=== PATIENT | female | born 1960 | race Caucasian/White ===

== ENCOUNTER 2019-09-15 02:34 | Emergency (ER) | payer MEDICAID ==
[~2019-09-15] VITALS: Ht 152.4 cm; Wt 59.9 kg
[~2019-09-15 02:34] MED LIST: FLUO20CA19; HAL5T; RISP4TAB50 PO; TRAZ150T79
[2019-09-15 03:05] VITALS: BP 113/71
[2019-09-15 03:59] LABS: Basophils # (auto) 0.1 uL; Basophils % (auto) 0.7 % (0.0-2.0); Eosinophils # (auto) 0.2 uL; Eosinophils % (auto) 2.2 % (0.0-7.0); Hemoglobin 13.9 g/dL (12.2-16.2); Lymphocytes # (auto) 1.9 uL; Lymphocytes % (auto) 23.8 % (10.0-50.0); Mean Corpuscular Hemoglobin 29.7 pg (28.0-32.0); Mean Corpuscular Hgb Conc. 33.1 g/dL (32.0-36.0); Mean Corpuscular Volume 89.7 fL (80.0-100.0); Monocytes # (auto) 0.5 uL; Monocytes % (auto) 6.8 % (0.0-12.0); Neutrophils # (auto) 5.4 uL; Neutrophils % (auto) 66.5 % (37.0-80.0); Platelet Count (auto) 404 10^3/uL (140-450); Red Blood Cells 4.68 10^6/uL (4.0-5.20); Red Cell Distribution Width 12.8 % (11.8-14.3); White Blood Cell 8.1 10^3/uL (4.4-10.8)
[2019-09-15 04:30] LABS: Albumin 3.3 g/dL (3.4-5.0); Anion Gap 5 (5-15); Blood Alcohol < 3.0 mg/dL (0-5); Blood Urea Nitrogen 6 mg/dL (7-18); Calcium 7.9 mg/dL (8.5-10.1); Carbon Dioxide 30 mmol/L (21-32); Chloride 110 mmol/L (98-107); Glucose 72 mg/dL (74-106); Potassium 3.6 mmol/L (3.5-5.1); Sodium 145 mmol/L (136-145)
[2019-09-15 04:33] LABS: Alanine Aminotransferase 21 U/L (13-56); Alkaline Phosphatase 74 U/L (45-117); Aspartate Aminotransferase 20 U/L (15-37); BUN/Creatinine Ratio 7.1; Bilirubin, Total 0.2 mg/dL (0.2-1.0); GFR African American 89 mL/min; GFR Non-African American 74 mL/min; Total Protein 6.3 g/dL (6.4-8.2)
[2019-09-15 05:14] LABS: Acetaminophen < 2.0 ug/mL (10-30); Salicylate < 1.7 mg/dL (2.8-20.0)
== END 2019-09-15 09:35 | disposition left against medical advice (07) ==
LOC: EDBD 02:34 → ER 02:39
DX: F32.9 Major depressive disorder, single episode, unspecified (principal); Z53.21 Procedure and treatment not carried out due to patient leaving prior to being seen by health care provider
CPT/HCPCS: 36415; 80053; 80320; 80329; 85025

== ENCOUNTER 2020-01-16 21:03 | Emergency (ER) | payer MEDICAID ==
[~2020-01-16] VITALS: Ht 162.6 cm; Wt 63.5 kg
[2020-01-16] MEDS ORDERED: SODIUM CHLORIDE 0.9% 1,000 ML IVB ONE (21:14)
[2020-01-16] MEDS ORDERED: PANTOPRAZOLE 40 MG/10 ML VIAL INJ IV STA (21:14)
[2020-01-16] MEDS ORDERED: PROCHLORPERAZINE EDISYLATE 5 MG/ML 2ML VIAL IV ONE (21:15)
[2020-01-16] MEDS ORDERED: MORPHINE SULFATE 4 MG/ML SYR/VIAL IV ONE (21:15)
[2020-01-16] MEDS ORDERED: traMADol HCL 50 MG TAB PO ONE (23:30)
[2020-01-16 23:43] LABS: Basophils # (auto) 0.1 10 ^3/uL (0-0.2); Basophils % (auto) 0.3 % (0.0-2.0); Eosinophils # (auto) 0 10 ^3/uL (0-0.8); Hematocrit 39.4 % (36.0-46.0); Lymphocytes # (auto) 1.1 10 ^3/uL (0.4-5.4); Mean Corpuscular Hemoglobin 29.9 pg (28.0-32.0); Mean Corpuscular Hgb Conc. 33.1 g/dL (32.0-36.0); Mean Corpuscular Volume 90.5 fL (80.0-100.0); Monocytes % (auto) 6.2 % (0.0-12.0); Neutrophils # (auto) 13.4 10 ^3/uL (1.6-8.6); Neutrophils % (auto) 86.5 % (37.0-80.0); Platelet Count (auto) 311 10^3/uL (140-450); Red Blood Cells 4.35 10^6/uL (4.0-5.20); Red Cell Distribution Width 13.1 % (11.8-14.3); White Blood Cell 15.5 10^3/uL (4.4-10.8)
[2020-01-16 23:58] LABS: Albumin 3.4 g/dL (3.4-5.0); Calcium 8.4 mg/dL (8.5-10.1); Potassium 3.8 mmol/L (3.5-5.1)
[2020-01-17] LABS: BUN/Creatinine Ratio 16.3
[2020-01-17 00:01] LABS: Bilirubin, Total 0.5 mg/dL (0.2-1.0); Total Protein 6.5 g/dL (6.4-8.2)
[2020-01-17 03:23] VITALS: BP 147/82
== END 2020-01-17 03:23 | disposition home or self-care (01) ==
LOC: ER 21:03 → EDBD 21:03 → ER 01-17 03:23
DX: K29.70 Gastritis, unspecified, without bleeding (principal); K59.00 Constipation, unspecified; K40.90 Unilateral inguinal hernia, without obstruction or gangrene, not specified as recurrent; F12.188 Cannabis abuse with other cannabis-induced disorder; Z71.51 Drug abuse counseling and surveillance of drug abuser; J45.909 Unspecified asthma, uncomplicated
CPT/HCPCS: 36415; 74176; 76705; 80053; 83690; 85025; 96361; 96374; 96375; 99285; C9113; J0780

== ENCOUNTER 2020-11-25 03:52 | Inpatient (IN) | payer MEDICAID ==
[~2020-11-25] VITALS: Ht 162.6 cm; Wt 67.4 kg
[~2020-11-25 03:52] MED LIST changes: +RISP4TAB25 PO; -RISP4TAB50 PO; -TRAZ150T79; +TRAZ1TAB12
[2020-11-25] MEDS ORDERED: ONDANSETRON HCL 4 MG/2 ML VIAL IV ONE ×2 (05:00→13:00)
[2020-11-25] MEDS ORDERED: MORPHINE SULF INJ 2 MG/ML SYRINGE 1ML IV ONE (05:00)
[2020-11-25 05:35] LABS: Basophils # (auto) 0.1 10 ^3/uL (0-0.2); Basophils % (auto) 1.1 % (0.0-2.0); Eosinophils # (auto) 0.3 10 ^3/uL (0-0.8); Eosinophils % (auto) 2.6 % (0.0-7.0); Hematocrit 41.1 % (36.0-46.0); Hemoglobin 13.7 g/dL (12.2-16.2); Lymphocytes # (auto) 1.2 10 ^3/uL (0.4-5.4); Lymphocytes % (auto) 9.3 % (10.0-50.0); Mean Corpuscular Hemoglobin 29.9 pg (28.0-32.0); Mean Corpuscular Hgb Conc. 33.2 g/dL (32.0-36.0); Mean Corpuscular Volume 90.1 fL (80.0-100.0); Monocytes # (auto) 0.7 10 ^3/uL (0-1.3); Monocytes % (auto) 5.7 % (0.0-12.0); Neutrophils # (auto) 10.5 10 ^3/uL (1.6-8.6); Neutrophils % (auto) 81.3 % (37.0-80.0); Nucleated Red Blood Cells % 0.1 %; Platelet Count (auto) 528 10^3/uL (140-450); Red Blood Cells 4.57 10^6/uL (4.0-5.20); Red Cell Distribution Width 13.1 % (11.8-14.3)
[2020-11-25 05:57] LABS: Lactic Acid w/Reflex 2.1 mmol/L (0.4-2.0)
[2020-11-25 05:58] LABS: Calcium 8.4 mg/dL (8.5-10.1); Chloride 108 mmol/L (98-107); Potassium 3.7 mmol/L (3.5-5.1); Sodium 142 mmol/L (136-145)
[2020-11-25 06:04] LABS: INR 0.97 (0.9-1.15); Partial Thromboplastin Time 27.1 sec (23.0-31.2)
[2020-11-25 06:07] LABS: Alanine Aminotransferase 13 U/L (13-56); Albumin 3.8 g/dL (3.4-5.0); Alkaline Phosphatase 88 U/L (45-117); Anion Gap 9 (5-15); Aspartate Aminotransferase 14 U/L (15-37); BUN/Creatinine Ratio 5.2; Bilirubin, Total 0.4 mg/dL (0.2-1.0); Blood Urea Nitrogen 5 mg/dL (7-18); Carbon Dioxide 25 mmol/L (21-32); GFR African American 76 mL/min; GFR Non-African American 63 mL/min; Glucose 100 mg/dL (74-106); Magnesium 2.5 mg/dL (1.6-2.6); Total Protein 6.6 g/dL (6.4-8.2)
[2020-11-25] MEDS ORDERED: IOHEXOL 350 MG/ML 100ML IJ ONE (10:33)
[2020-11-25] MEDS ORDERED: cefTRIAXone 1GM/50ML D5W 50 ML IV ONE (10:45)
[2020-11-25] MEDS ORDERED: MORPHINE SULFATE 4 MG/ML SYR/VIAL IV ONE (13:00)
[2020-11-25] MEDS ORDERED: NITROGLYCERIN 0.4 MG SL TAB SL PRN (14:45)
[2020-11-25] MEDS ORDERED: PROMETHAZINE HCL 25 MG/ML 1ML IV PRN (14:45)
[2020-11-25] MEDS ORDERED: CLINDAMYCIN 300MG IV 50 ML IV ONE (14:45)
[2020-11-25] MEDS ORDERED: MORPHINE SULF INJ 2 MG/ML SYRINGE 1ML IV PRN (14:45)
[2020-11-25] MEDS ORDERED: ALBUTEROL SULF 2.5 MG/0.5ML(0.5%) NEB SOLN NEB PRN (14:45)
[2020-11-25] MEDS ORDERED: LACTULOSE 20Gm/30ML SOLN PO PRN (14:45)
[2020-11-25] MEDS ORDERED: levoFLOXacin 500MG 100 ML IV ONE (14:45)
[2020-11-25] MEDS ORDERED: oxyCODONE HCL 5MG TAB PO PRN (15:00)
[2020-11-25 15:01] VITALS: BP 115/58
[2020-11-25] MEDS: SODIUM CHLORIDE 0.9% 1,000 ML IV SCH (15:02)
[2020-11-25 16:08] LABS: CRP High Sensitivity 0.53 mg/dL (< 0.3)
[2020-11-25] MEDS: MORPHINE SULF INJ 2 MG/ML SYRINGE 1ML IV PRN ×2 (18:01→22:05)
[2020-11-25 18:02] VITALS: BP 122/81
[2020-11-25] MEDS: IPRATROPIUM BROM 0.5 MG/2.5ML INH SOL NEB SCH ×2 (18:07→23:57)
[2020-11-25] MEDS: ALBUTEROL SULF 2.5 MG/0.5ML(0.5%) NEB SOLN NEB SCH ×2 (18:07→23:57)
[2020-11-25] MEDS: CLINDAMYCIN 300MG IV 50 ML IV SCH (21:27)
[2020-11-25] MEDS: FAMOTIDINE 20 MG TAB PO SCH (21:27)
[2020-11-25] MEDS: CARVEDILOL 3.125 MG TAB PO SCH (21:28)
[2020-11-25] MEDS: ATORVASTATIN 20 MG TAB PO SCH (21:28)
[2020-11-25 22:00] VITALS: BP 105/54
[2020-11-26] MEDS: SODIUM CHLORIDE 0.9% 1,000 ML IV SCH ×4 (00:45→23:36)
[2020-11-26 01:39] LABS: Urine Bacteria FEW /hpf (None Seen); Urine Blood Negative /uL (Negative)
[2020-11-26 01:40] LABS: Urine WBC 5 /hpf (0 - 5)
[2020-11-26 01:48] LABS: Alcohol, Urine < 3.0 mg/dL (0-10); Amphetamine Screen, Urine POSITIVE (NEGATIVE); Barbiturate Scree,Urine NEGATIVE (NEGATIVE); Benzodiazephine Screen, Urine POSITIVE (NEGATIVE); Cannabinoid Screen, Urine POSITIVE (NEGATIVE); Cocaine Screen, Urine NEGATIVE (NEGATIVE); Opiate Scree,Urine NEGATIVE (NEGATIVE); Phencyclidine Screen, Urine NEGATIVE (NEGATIVE)
[2020-11-26] MEDS: MORPHINE SULF INJ 2 MG/ML SYRINGE 1ML IV PRN ×4 (04:07→21:37)
[2020-11-26 05:00] VITALS: BP 100/54
[2020-11-26 05:25] LABS: Basophils # (auto) 0.1 10 ^3/uL (0-0.2); Eosinophils # (auto) 0.3 10 ^3/uL (0-0.8); Eosinophils % (auto) 3.7 % (0.0-7.0); Hematocrit 34.2 % (36.0-46.0); Hemoglobin 11.6 g/dL (12.2-16.2); Lymphocytes # (auto) 1.4 10 ^3/uL (0.4-5.4); Lymphocytes % (auto) 18.4 % (10.0-50.0); Mean Corpuscular Hemoglobin 30.9 pg (28.0-32.0); Mean Corpuscular Volume 90.9 fL (80.0-100.0); Monocytes # (auto) 0.7 10 ^3/uL (0-1.3); Monocytes % (auto) 9.4 % (0.0-12.0); Neutrophils # (auto) 5.1 10 ^3/uL (1.6-8.6); Neutrophils % (auto) 67.5 % (37.0-80.0); Platelet Count (auto) 388 10^3/uL (140-450); Red Blood Cells 3.77 10^6/uL (4.0-5.20); Red Cell Distribution Width 13.1 % (11.8-14.3); White Blood Cell 7.6 10^3/uL (4.4-10.8)
[2020-11-26] MEDS: CLINDAMYCIN 300MG IV 50 ML IV SCH ×3 (05:37→21:44)
[2020-11-26] MEDS: ALBUTEROL SULF 2.5 MG/0.5ML(0.5%) NEB SOLN NEB SCH ×3 (05:39→19:21)
[2020-11-26] MEDS: IPRATROPIUM BROM 0.5 MG/2.5ML INH SOL NEB SCH ×3 (05:39→19:21)
[2020-11-26 05:45] LABS: Cholesterol 159 mg/dL (< 200); HDL Cholesterol 49 mg/dL (40-59); LDL Cholesterol 99 mg/dL (< 100); Triglycerides 85 mg/dL (< 150)
[2020-11-26] MEDS: LEVOTHYROXINE SODIUM 25 MCG TAB PO SCH (06:14)
[2020-11-26 08:00] VITALS: BP 95/58
[2020-11-26 08:52] VITALS: BP 95/58
[2020-11-26] MEDS: CARVEDILOL 3.125 MG TAB PO SCH ×2 (10:00→21:37)
[2020-11-26] MEDS: ASPirin 81 mg TAB PO SCH (11:06)
[2020-11-26] MEDS: levoFLOXacin 500MG 100 ML IV SCH (11:06)
[2020-11-26] MEDS: ENOXAPARIN SOD 40 MG/0.4 ML SYRINGE SC SCH (11:08)
[2020-11-26] MEDS: FAMOTIDINE 20 MG TAB PO SCH ×2 (11:08→21:37)
[2020-11-26 12:42] VITALS: BP 94/65
[2020-11-26 16:41] VITALS: BP 95/58
[2020-11-26] MEDS: LORazepam 0.5 MG TAB PO PRN (19:31)
[2020-11-26] MEDS: ATORVASTATIN 20 MG TAB PO SCH (21:38)
[2020-11-26 22:00] VITALS: BP 146/86
[2020-11-27] MEDS: ALBUTEROL SULF 2.5 MG/0.5ML(0.5%) NEB SOLN NEB SCH ×5 (01:19→23:46)
[2020-11-27] MEDS: LORazepam 0.5 MG TAB PO PRN ×4 (03:22→23:39)
[2020-11-27 05:00] VITALS: BP 133/80
[2020-11-27] MEDS: CLINDAMYCIN 300MG IV 50 ML IV SCH ×3 (05:42→22:18)
[2020-11-27] MEDS: MORPHINE SULF INJ 2 MG/ML SYRINGE 1ML IV PRN ×4 (05:42→20:55)
[2020-11-27] MEDS: IPRATROPIUM BROM 0.5 MG/2.5ML INH SOL NEB SCH ×5 (06:08→23:46)
[2020-11-27] MEDS: LEVOTHYROXINE SODIUM 25 MCG TAB PO SCH (06:18)
[2020-11-27 08:00] VITALS: BP 122/63
[2020-11-27 08:51] VITALS: BP 122/63
[2020-11-27] MEDS: levoFLOXacin 500MG 100 ML IV SCH (09:30)
[2020-11-27] MEDS: ASPirin 81 mg TAB PO SCH (09:30)
[2020-11-27] MEDS: ENOXAPARIN SOD 40 MG/0.4 ML SYRINGE SC SCH (09:31)
[2020-11-27] MEDS: FAMOTIDINE 20 MG TAB PO SCH ×2 (09:31→21:56)
[2020-11-27] MEDS: CARVEDILOL 3.125 MG TAB PO SCH ×2 (09:31→21:55)
[2020-11-27 10:32] LABS: Basophils # (auto) 0 10 ^3/uL (0-0.2); Eosinophils # (auto) 0.2 10 ^3/uL (0-0.8); Hematocrit 36.2 % (36.0-46.0); Lymphocytes # (auto) 1.2 10 ^3/uL (0.4-5.4); Monocytes # (auto) 0.5 10 ^3/uL (0-1.3); Red Blood Cells 4.06 10^6/uL (4.0-5.20); White Blood Cell 6.3 10^3/uL (4.4-10.8)
[2020-11-27 10:35] LABS: Basophils % (auto) 0.5 % (0.0-2.0); Hemoglobin 12.2 g/dL (12.2-16.2); Lymphocytes % (auto) 18.8 % (10.0-50.0); Mean Corpuscular Hemoglobin 30.1 pg (28.0-32.0); Mean Corpuscular Hgb Conc. 33.7 g/dL (32.0-36.0); Mean Corpuscular Volume 89.3 fL (80.0-100.0); Monocytes % (auto) 8.7 % (0.0-12.0); Neutrophils # (auto) 4.4 10 ^3/uL (1.6-8.6); Nucleated Red Blood Cells % 0.1 %; Platelet Count (auto) 449 10^3/uL (140-450); Red Cell Distribution Width 12.5 % (11.8-14.3)
[2020-11-27 10:41] LABS: Albumin 2.8 g/dL (3.4-5.0); Calcium 8.4 mg/dL (8.5-10.1)
[2020-11-27 10:45] LABS: Bilirubin, Total 0.5 mg/dL (0.2-1.0); Total Protein 5.9 g/dL (6.4-8.2)
[2020-11-27 12:24] VITALS: BP 115/61
[2020-11-27 16:40] VITALS: BP 105/63
[2020-11-27] MEDS: SODIUM CHLORIDE 0.9% 1,000 ML IV SCH (17:50)
[2020-11-27] MEDS: Ensure HIGH Protein Chocolate 8oz Bottle PO SCH (18:52)
[2020-11-27 21:13] VITALS: BP 107/57
[2020-11-27] MEDS: ATORVASTATIN 20 MG TAB PO SCH (21:50)
[2020-11-27] MEDS: traZODone HCL 50 MG TAB PO SCH (21:51)
[2020-11-27] MEDS: traMADol HCL 50 MG TAB PO PRN (22:05)
[2020-11-28] MEDS: MORPHINE SULF INJ 2 MG/ML SYRINGE 1ML IV PRN ×5 (01:23→21:03)
[2020-11-28] MEDS: SODIUM CHLORIDE 0.9% 1,000 ML IV SCH ×3 (02:45→22:50)
[2020-11-28 05:30] VITALS: BP 120/49
[2020-11-28 05:42] LABS: Basophils # (auto) 0.1 10 ^3/uL (0-0.2); Basophils % (auto) 1.2 % (0.0-2.0); Eosinophils # (auto) 0.2 10 ^3/uL (0-0.8); Lymphocytes # (auto) 1.5 10 ^3/uL (0.4-5.4)
[2020-11-28] MEDS: LEVOTHYROXINE SODIUM 25 MCG TAB PO SCH (05:43)
[2020-11-28] MEDS: CLINDAMYCIN 300MG IV 50 ML IV SCH ×3 (05:43→21:40)
[2020-11-28 05:46] LABS: Eosinophils % (auto) 3.3 % (0.0-7.0); Hematocrit 35.4 % (36.0-46.0); Hemoglobin 12.3 g/dL (12.2-16.2); Lymphocytes % (auto) 24.9 % (10.0-50.0); Mean Corpuscular Hemoglobin 31.1 pg (28.0-32.0); Mean Corpuscular Hgb Conc. 34.6 g/dL (32.0-36.0); Mean Corpuscular Volume 89.7 fL (80.0-100.0); Monocytes # (auto) 0.7 10 ^3/uL (0-1.3); Neutrophils # (auto) 3.6 10 ^3/uL (1.6-8.6); Neutrophils % (auto) 59.6 % (37.0-80.0); Platelet Count (auto) 460 10^3/uL (140-450); Red Blood Cells 3.94 10^6/uL (4.0-5.20); Red Cell Distribution Width 12.5 % (11.8-14.3)
[2020-11-28 06:08] LABS: Potassium 3.6 mmol/L (3.5-5.1)
[2020-11-28 06:21] LABS: BUN/Creatinine Ratio 8.1; Bilirubin, Total 0.6 mg/dL (0.2-1.0); Calcium 8.4 mg/dL (8.5-10.1); Total Protein 5.9 g/dL (6.4-8.2)
[2020-11-28] MEDS: IPRATROPIUM BROM 0.5 MG/2.5ML INH SOL NEB SCH ×3 (06:26→20:15)
[2020-11-28] MEDS: ALBUTEROL SULF 2.5 MG/0.5ML(0.5%) NEB SOLN NEB SCH ×3 (06:27→20:15)
[2020-11-28 08:00] VITALS: BP 127/82
[2020-11-28 09:53] VITALS: BP 124/78
[2020-11-28] MEDS: ASPirin 81 mg TAB PO SCH (09:55)
[2020-11-28] MEDS: FAMOTIDINE 20 MG TAB PO SCH (09:55)
[2020-11-28] MEDS: CARVEDILOL 3.125 MG TAB PO SCH ×2 (09:56→21:42)
[2020-11-28] MEDS: ENOXAPARIN SOD 40 MG/0.4 ML SYRINGE SC SCH (09:56)
[2020-11-28] MEDS: levoFLOXacin 500MG 100 ML IV SCH (09:57)
[2020-11-28] MEDS: Ensure HIGH Protein Chocolate 8oz Bottle PO SCH ×3 (09:58→18:46)
[2020-11-28 12:00] VITALS: BP 125/75
[2020-11-28] MEDS: PANTOPRAZOLE 40 MG/10 ML VIAL INJ IV SCH ×2 (15:11→21:40)
[2020-11-28] MEDS: SUCRALFATE 1 GM/10 ML ORAL SUSP PO SCH ×3 (15:11→21:40)
[2020-11-28 16:00] VITALS: BP 138/82
[2020-11-28] MEDS: traMADol HCL 50 MG TAB PO PRN (16:59)
[2020-11-28] MEDS: LORazepam 0.5 MG TAB PO PRN (18:51)
[2020-11-28] MEDS: traZODone HCL 50 MG TAB PO SCH ×2 (21:42→22:36)
[2020-11-28] MEDS: ATORVASTATIN 20 MG TAB PO SCH (21:43)
[2020-11-28 22:00] VITALS: BP 141/89
[2020-11-29] VITALS (7 sets, daily range): BP systolic 114–158; BP diastolic 63–99
[2020-11-29] MEDS: CLINDAMYCIN 300MG IV 50 ML IV SCH ×3 (05:48→21:21)
[2020-11-29 05:54] LABS: Basophils # (auto) 0 10 ^3/uL (0-0.2); Basophils % (auto) 0.8 % (0.0-2.0); Eosinophils # (auto) 0.2 10 ^3/uL (0-0.8); Eosinophils % (auto) 3.6 % (0.0-7.0); Hematocrit 35.3 % (36.0-46.0); Hemoglobin 12.1 g/dL (12.2-16.2); Lymphocytes # (auto) 1.1 10 ^3/uL (0.4-5.4); Lymphocytes % (auto) 25.6 % (10.0-50.0); Mean Corpuscular Hemoglobin 30.6 pg (28.0-32.0); Mean Corpuscular Hgb Conc. 34.3 g/dL (32.0-36.0); Mean Corpuscular Volume 89.3 fL (80.0-100.0); Monocytes # (auto) 0.5 10 ^3/uL (0-1.3); Monocytes % (auto) 11.1 % (0.0-12.0); Neutrophils # (auto) 2.6 10 ^3/uL (1.6-8.6); Neutrophils % (auto) 58.9 % (37.0-80.0); Nucleated Red Blood Cells % 0.2 %; Platelet Count (auto) 463 10^3/uL (140-450); Red Blood Cells 3.95 10^6/uL (4.0-5.20); Red Cell Distribution Width 12.8 % (11.8-14.3); White Blood Cell 4.5 10^3/uL (4.4-10.8)
[2020-11-29 06:33] LABS: BUN/Creatinine Ratio 12.2; Bilirubin, Total 0.3 mg/dL (0.2-1.0); Calcium 8.4 mg/dL (8.5-10.1); Potassium 3.7 mmol/L (3.5-5.1); Total Protein 5.9 g/dL (6.4-8.2)
[2020-11-29] MEDS: LEVOTHYROXINE SODIUM 25 MCG TAB PO SCH (06:35)
[2020-11-29] MEDS: SUCRALFATE 1 GM/10 ML ORAL SUSP PO SCH ×4 (06:35→21:21)
[2020-11-29] MEDS: ALBUTEROL SULF 2.5 MG/0.5ML(0.5%) NEB SOLN NEB SCH ×4 (06:41→19:12)
[2020-11-29] MEDS: IPRATROPIUM BROM 0.5 MG/2.5ML INH SOL NEB SCH ×4 (06:41→19:12)
[2020-11-29] MEDS: SODIUM CHLORIDE 0.9% 1,000 ML IV SCH ×2 (08:45→18:42)
[2020-11-29] MEDS: ENOXAPARIN SOD 40 MG/0.4 ML SYRINGE SC SCH (10:39)
[2020-11-29] MEDS: ASPirin 81 mg TAB PO SCH (10:40)
[2020-11-29] MEDS: CARVEDILOL 3.125 MG TAB PO SCH ×2 (10:40→21:39)
[2020-11-29] MEDS: levoFLOXacin 500MG 100 ML IV SCH (10:41)
[2020-11-29] MEDS: PANTOPRAZOLE 40 MG/10 ML VIAL INJ IV SCH ×2 (10:41→21:21)
[2020-11-29] MEDS: MORPHINE SULF INJ 2 MG/ML SYRINGE 1ML IV PRN ×3 (10:41→21:22)
[2020-11-29] MEDS: Ensure HIGH Protein Chocolate 8oz Bottle PO SCH ×3 (10:42→18:21)
[2020-11-29] MEDS: LORazepam 0.5 MG TAB PO PRN (14:21)
[2020-11-29] MEDS ORDERED: DIVA500T2 PO (17:41)
[2020-11-29] MEDS ORDERED: ALPR0.5T PO (17:41)
[2020-11-29] MEDS ORDERED: TRAZ50TA2 PO (17:41)
[2020-11-29] MEDS: ATORVASTATIN 20 MG TAB PO SCH (21:21)
[2020-11-29] MEDS: traZODone HCL 50 MG TAB PO SCH (22:47)
[2020-11-30] MEDS: IPRATROPIUM BROM 0.5 MG/2.5ML INH SOL NEB SCH ×4 (00:22→18:31)
[2020-11-30] MEDS: ALBUTEROL SULF 2.5 MG/0.5ML(0.5%) NEB SOLN NEB SCH ×4 (00:22→18:31)
[2020-11-30] MEDS: SODIUM CHLORIDE 0.9% 1,000 ML IV SCH ×2 (04:45→13:07)
[2020-11-30 05:22] VITALS: BP 142/56
[2020-11-30] MEDS: CLINDAMYCIN 300MG IV 50 ML IV SCH (06:05)
[2020-11-30] MEDS: SUCRALFATE 1 GM/10 ML ORAL SUSP PO SCH ×4 (06:07→21:51)
[2020-11-30] MEDS: LEVOTHYROXINE SODIUM 25 MCG TAB PO SCH (06:07)
[2020-11-30] MEDS: MORPHINE SULF INJ 2 MG/ML SYRINGE 1ML IV PRN ×4 (06:07→20:03)
[2020-11-30 07:13] LABS: Basophils # (auto) 0.1 10 ^3/uL (0-0.2); Basophils % (auto) 1.2 % (0.0-2.0); Eosinophils # (auto) 0.2 10 ^3/uL (0-0.8); Eosinophils % (auto) 2.9 % (0.0-7.0); Hematocrit 34.8 % (36.0-46.0); Hemoglobin 11.9 g/dL (12.2-16.2); Lymphocytes # (auto) 1.1 10 ^3/uL (0.4-5.4); Lymphocytes % (auto) 22.1 % (10.0-50.0); Mean Corpuscular Hemoglobin 30.6 pg (28.0-32.0); Mean Corpuscular Hgb Conc. 34.1 g/dL (32.0-36.0); Mean Corpuscular Volume 89.6 fL (80.0-100.0); Monocytes # (auto) 0.6 10 ^3/uL (0-1.3); Neutrophils # (auto) 3.2 10 ^3/uL (1.6-8.6); Neutrophils % (auto) 61.8 % (37.0-80.0); Platelet Count (auto) 442 10^3/uL (140-450); Red Blood Cells 3.88 10^6/uL (4.0-5.20); Red Cell Distribution Width 12.5 % (11.8-14.3); White Blood Cell 5.2 10^3/uL (4.4-10.8)
[2020-11-30 07:27] LABS: Potassium 3.7 mmol/L (3.5-5.1)
[2020-11-30 07:35] LABS: BUN/Creatinine Ratio 18.7; Bilirubin, Total 0.3 mg/dL (0.2-1.0); Calcium 8.5 mg/dL (8.5-10.1); Total Protein 5.8 g/dL (6.4-8.2)
[2020-11-30] MEDS: Ensure HIGH Protein Chocolate 8oz Bottle PO SCH ×3 (08:18→18:00)
[2020-11-30 08:46] VITALS: BP 135/76
[2020-11-30] MEDS: levoFLOXacin 500MG 100 ML IV SCH (09:44)
[2020-11-30] MEDS: PANTOPRAZOLE 40 MG/10 ML VIAL INJ IV SCH ×2 (09:44→21:51)
[2020-11-30] MEDS: ENOXAPARIN SOD 40 MG/0.4 ML SYRINGE SC SCH (09:44)
[2020-11-30] MEDS: CARVEDILOL 3.125 MG TAB PO SCH ×2 (09:45→21:51)
[2020-11-30] MEDS: ASPirin 81 mg TAB PO SCH (09:45)
[2020-11-30 12:43] VITALS: BP 125/77
[2020-11-30] MEDS: LORazepam 0.5 MG TAB PO PRN (13:08)
[2020-11-30 16:58] VITALS: BP 146/85
[2020-11-30] MEDS: traZODone HCL 50 MG TAB PO SCH (21:51)
[2020-11-30 22:00] VITALS: BP 138/82
[2020-12-01] VITALS (7 sets, daily range): BP systolic 108–148; BP diastolic 66–92
[2020-12-01] MEDS: ALBUTEROL SULF 2.5 MG/0.5ML(0.5%) NEB SOLN NEB SCH ×4 (00:38→18:51)
[2020-12-01] MEDS: IPRATROPIUM BROM 0.5 MG/2.5ML INH SOL NEB SCH ×4 (00:38→18:51)
[2020-12-01] MEDS: SODIUM CHLORIDE 0.9% 1,000 ML IV SCH ×2 (00:45→16:38)
[2020-12-01] MEDS: SUCRALFATE 1 GM/10 ML ORAL SUSP PO SCH ×4 (06:44→21:51)
[2020-12-01] MEDS: LEVOTHYROXINE SODIUM 25 MCG TAB PO SCH (06:45)
[2020-12-01] MEDS: Ensure HIGH Protein Chocolate 8oz Bottle PO SCH ×3 (08:00→18:00)
[2020-12-01] MEDS: CARVEDILOL 3.125 MG TAB PO SCH ×2 (10:00→21:53)
[2020-12-01] MEDS: ASPirin 81 mg TAB PO SCH (10:00)
[2020-12-01] MEDS ORDERED: MIDAZOLAM HCL 1MG/1ML-2 ML VIAL ONE (13:19)
[2020-12-01] MEDS ORDERED: fentaNYL CITRATE 100 MCG/2 ML VL ONE (13:19)
[2020-12-01] MEDS ORDERED: PROPOFOL 10 MG/ML 20 ML IV ONE (13:32)
[2020-12-01] MEDS ORDERED: LIDOCAINE 2% (LOCAL ANESTH.) PF 5ml SDV ONE (13:32)
[2020-12-01] MEDS ORDERED: ONDANSETRON HCL 4 MG/2 ML VIAL IV PRN (13:45)
[2020-12-01] MEDS: PANTOPRAZOLE 40 MG/10 ML VIAL INJ IV SCH ×2 (16:34→21:51)
[2020-12-01] MEDS: levoFLOXacin 500MG 100 ML IV SCH (16:34)
[2020-12-01] MEDS: LORazepam 0.5 MG TAB PO PRN (17:03)
[2020-12-01] MEDS: MORPHINE SULF INJ 2 MG/ML SYRINGE 1ML IV PRN (18:43)
[2020-12-01] MEDS: traMADol HCL 50 MG TAB PO PRN (21:51)
[2020-12-01] MEDS: traZODone HCL 50 MG TAB PO SCH (21:54)
[2020-12-02] MEDS: IPRATROPIUM BROM 0.5 MG/2.5ML INH SOL NEB SCH ×2 (00:33→08:32)
[2020-12-02] MEDS: ALBUTEROL SULF 2.5 MG/0.5ML(0.5%) NEB SOLN NEB SCH ×2 (00:33→08:33)
[2020-12-02 05:00] VITALS: BP 141/72
[2020-12-02] MEDS: SUCRALFATE 1 GM/10 ML ORAL SUSP PO SCH (06:14)
[2020-12-02] MEDS: SODIUM CHLORIDE 0.9% 1,000 ML IV SCH (06:14)
[2020-12-02] MEDS: LEVOTHYROXINE SODIUM 25 MCG TAB PO SCH (06:15)
[2020-12-02] MEDS: MORPHINE SULF INJ 2 MG/ML SYRINGE 1ML IV PRN (06:25)
[2020-12-02 08:00] VITALS: BP 126/64
[2020-12-02 08:31] VITALS: BP 126/64
[2020-12-02 13:30] VITALS: BP 124/71
[2020-12-02 14:44] VITALS: BP 126/64
== END 2020-12-02 16:38 | disposition home or self-care (01) | DRG 720 ==
LOC: EDBD 03:52 → ER 03:57 → TELE 14:37 → TELE-WESTW 16:40
PROVIDERS: ADMIT Internal Medicine; ATTEND Internal Medicine
PROC: 0DJ08ZZ Inspection of Upper Intestinal Tract, Via Natural or Artificial Opening Endoscopic (ICD-10-PCS; principal; 2020-12-01 13:19)
DX: A41.9 Sepsis, unspecified organism (principal); C50.919 Malignant neoplasm of unspecified site of unspecified female breast; R13.19 Other dysphagia; L03.115 Cellulitis of right lower limb; D63.8 Anemia in other chronic diseases classified elsewhere; E03.9 Hypothyroidism, unspecified; F12.90 Cannabis use, unspecified, uncomplicated; K20.90 Esophagitis, unspecified without bleeding; L03.116 Cellulitis of left lower limb; R07.89 Other chest pain; J45.909 Unspecified asthma, uncomplicated; F41.9 Anxiety disorder, unspecified; Z88.8 Allergy status to other drugs, medicaments and biological substances; F15.90 Other stimulant use, unspecified, uncomplicated; F17.210 Nicotine dependence, cigarettes, uncomplicated; F31.9 Bipolar disorder, unspecified; K44.9 Diaphragmatic hernia without obstruction or gangrene; Z20.822 Contact with and (suspected) exposure to COVID-19; Z83.3 Family history of diabetes mellitus; Z90.11 Acquired absence of right breast and nipple
CPT/HCPCS: 36415; 43235; 71045; 71275; 80053; 80061; 80307; 81001; 82550; 83605; 83735; 83880; 84443; 84484; 85025; 85379; 85610; 85730; 86141; 87040; 87426; 93005; 93306; 93970; 94640; 96365; 96375; C9113; G0378; J0696; J1956; J2001; J2250; J2405; J2704; J3490

== ENCOUNTER 2023-03-26 01:45 | Emergency (ER) | payer MEDICAID ==
[~2023-03-26] VITALS: Ht 162.6 cm; Wt 65.0 kg
[~2023-03-26 01:45] MED LIST changes: +ALPR0.5T PO; +DIVA500T3 PO; -FLUO20CA19; -HAL5T; -RISP4TAB25 PO; +TRAZ-227 PO; -TRAZ1TAB12
[2023-03-26 03:08] VITALS: PULSE 72; RESP 16; O2SAT 96
[2023-03-26] MEDS ORDERED: IOHEXOL 350 MG/ML 100ML IJ ONE (03:55)
[2023-03-26 04:00] VITALS: BP 119/76; PULSE 74; RESP 18; O2SAT 96
[2023-03-26 04:19] LABS: Basophils # (auto) 0 10 ^3/uL (0-0.2); Basophils % (auto) 0.4 % (0.0-2.0); Eosinophils # (auto) 0.1 10 ^3/uL (0-0.8); Eosinophils % (auto) 0.7 % (0.0-7.0); Hematocrit 37.6 % (36.0-46.0); Hemoglobin 12.5 g/dL (12.2-16.2); Lymphocytes # (auto) 0.7 10 ^3/uL (0.4-5.4); Lymphocytes % (auto) 5.5 % (10.0-50.0); Mean Corpuscular Hemoglobin 29.2 pg (28.0-32.0); Mean Corpuscular Hgb Conc. 33.4 g/dL (32.0-36.0); Mean Corpuscular Volume 87.6 fL (80.0-100.0); Monocytes # (auto) 0.5 10 ^3/uL (0-1.3); Monocytes % (auto) 4.3 % (0.0-12.0); Neutrophils # (auto) 10.7 10 ^3/uL (1.6-8.6); Neutrophils % (auto) 89.1 % (37.0-80.0); Red Blood Cells 4.29 10^6/uL (4.0-5.20); Red Cell Distribution Width 13.3 % (11.8-14.3)
[2023-03-26 04:29] LABS: INR 0.95 (0.9-1.15); Partial Thromboplastin Time 33.6 SEC (24.5-34.5)
[2023-03-26 04:39] LABS: Alkaline Phosphatase 51 U/L (46-116); Anion Gap 7.3 (5-15); Aspartate Aminotransferase 12 U/L (13-40); BUN/Creatinine Ratio 11.3 (10.0-20.0); Bilirubin, Total 0.5 mg/dL (0.2-1.0); Blood Alcohol < 3.0 mg/dL (<10); Blood Urea Nitrogen 11 mg/dL (9-23); Carbon Dioxide 28.7 mmol/L (20-30); Chloride 101 mmol/L (98-107); Glucose 105 mg/dL (74-106); Lipase 34 U/L (12-53); Magnesium 1.7 mg/dL (1.6-2.6); Sodium 137 mmol/L (136-145); Total Protein 6.2 g/dL (5.7-8.2)
[2023-03-26 04:53] LABS: Alanine Aminotransferase < 9 U/L (7-40)
[2023-03-26] MEDS ORDERED: PANTOPRAZOLE 40 MG/10 ML VIAL INJ IV ONE (05:45)
== END 2023-03-26 06:32 | disposition home or self-care (01) ==
LOC: EDUNIT# 01:45 → EDBD 01:45 → ER 01:48
DX: G89.18 Other acute postprocedural pain (principal); R07.89 Other chest pain; D25.9 Leiomyoma of uterus, unspecified; J45.909 Unspecified asthma, uncomplicated; Z90.11 Acquired absence of right breast and nipple; Z85.3 Personal history of malignant neoplasm of breast; Z98.890 Other specified postprocedural states; Z88.5 Allergy status to narcotic agent; Z88.8 Allergy status to other drugs, medicaments and biological substances; Z79.899 Other long term (current) drug therapy
CPT/HCPCS: 36415; 71260; 74177; 80053; 80320; 82010; 83605; 83690; 83735; 83880; 83930; 84443; 84484; 85025; 85610; 85730; 96374; 99285; C9113; Q9967

== ENCOUNTER 2024-01-16 06:22 | Emergency (ER) | payer MEDICAID ==
[~2024-01-16] VITALS: Ht 203.2 cm; Wt 77.2 kg
[~2024-01-16 06:22] MED LIST changes: +DIVA-91 PO; -DIVA500T3 PO
[2024-01-16 07:10] VITALS: PULSE 87; RESP 21; O2SAT 98
[2024-01-16] MEDS: SODIUM CHLORIDE 0.9% 1,000 ML IV ONE (07:30)
[2024-01-16 08:00] VITALS: PULSE 87; RESP 21; O2SAT 98
[2024-01-16] MEDS: SODIUM CHLORIDE 0.9% 500 ML IVB ONE (08:06)
[2024-01-16] MEDS: METOCLOPRAMIDE HCL 5MG/ml INJ 2ml VIAL IV ONE (08:06)
[2024-01-16 08:20] LABS: Basophils # (auto) 0 10 ^3/uL (0-0.2); Lymphocytes # (auto) 1.8 10 ^3/uL (0.4-5.4)
[2024-01-16 08:21] LABS: Basophils % (auto) 0.2 % (0.0-2.0); Eosinophils # (auto) 0.1 10 ^3/uL (0-0.8); Eosinophils % (auto) 0.3 % (0.0-7.0); Hematocrit 37.1 % (36.0-46.0); Hemoglobin 12.4 g/dL (12.2-16.2); Lymphocytes % (auto) 10.4 % (10.0-50.0); Mean Corpuscular Hemoglobin 29.1 pg (28.0-32.0); Mean Corpuscular Hgb Conc. 33.4 g/dL (32.0-36.0); Mean Corpuscular Volume 87.1 fL (80.0-100.0); Monocytes # (auto) 1.2 10 ^3/uL (0-1.3); Neutrophils # (auto) 13.8 10 ^3/uL (1.6-8.6); Neutrophils % (auto) 82.1 % (37.0-80.0); Red Blood Cells 4.26 10^6/uL (4.0-5.20); White Blood Cell 16.9 10^3/uL (4.4-10.8)
[2024-01-16] MEDS: PANTOPRAZOLE 40 MG/10 ML VIAL INJ IV ONE (08:45)
[2024-01-16 09:06] LABS: Urine Bacteria None Seen /hpf (None Seen)
[2024-01-16 09:16] LABS: Urine Blood Negative /uL (Negative); Urine Clarity Clear (Clear); Urine Color Light-Yellow (Yellow); Urine Protein, UAD Negative (Negative); Urine Specific Gravity 1.013 (1.001-1.035); Urine Urobilinogen Normal (Negative); Urine WBC 5 /hpf (0 - 5)
[2024-01-16 09:53] LABS: Alanine Aminotransferase 10 U/L (7-40); Albumin 4.3 g/dL (3.2-4.8); Alkaline Phosphatase 82 U/L (46-116); Anion Gap 11 (5-15); Aspartate Aminotransferase 14 U/L (13-40); BUN/Creatinine Ratio 16.3 (10.0-20.0); Bilirubin, Total 0.4 mg/dL (0.2-1.0); Blood Urea Nitrogen 22 mg/dL (9-23); Calcium 9.2 mg/dL (8.5-10.1); Carbon Dioxide 22 mmol/L (20-30); Chloride 105 mmol/L (98-107); Glucose 111 mg/dL (74-106); Magnesium 1.9 mg/dL (1.6-2.6); Potassium 3.7 mmol/L (3.5-5.1); Sodium 138 mmol/L (136-145); Total Protein 6.5 g/dL (5.7-8.2)
[2024-01-16] MEDS ORDERED: IOHEXOL 300 MG/ML 100ML BOTTLE IJ ONE (10:57)
[2024-01-16 12:00] VITALS: TEMP 98.4
[2024-01-16 12:56] LABS: Lipase 37 U/L (12-53)
[2024-01-16] MEDS: ALPRAZolam 0.5 MG TAB PO ONE (15:32)
[2024-01-16] MEDS ORDERED: PROC10TA6 PO (16:06)
[2024-01-16] MEDS ORDERED: NITR-87 PO (16:06)
[2024-01-16 16:25] VITALS: BP 109/74; PULSE 93; RESP 11; O2SAT 95
== END 2024-01-16 16:47 | disposition home or self-care (01) ==
LOC: EDUNIT# 06:22 → EDBD 06:22 → ER 06:24
DX: K59.01 Slow transit constipation (principal); N39.0 Urinary tract infection, site not specified; D75.839 Thrombocytosis, unspecified; F31.9 Bipolar disorder, unspecified; J45.909 Unspecified asthma, uncomplicated; F12.10 Cannabis abuse, uncomplicated; Z85.3 Personal history of malignant neoplasm of breast; Z88.6 Allergy status to analgesic agent; Z90.10 Acquired absence of unspecified breast and nipple
CPT/HCPCS: 36415; 71046; 74177; 80053; 81001; 83690; 83735; 84484; 85025; 93005; 96361; 96374; 96375; 99285; C9113; J2765; J7030; J7040; Q9967